=== PATIENT | male | born 1960 | race Caucasian/White ===

== ENCOUNTER → 2018-08-04 | Outpatient (CLI) | payer OTHER ==
[~2018-08-04] MED LIST: ATEN25 PO; ESOM20 PO; GLIM4 PO; METF500 PO; NIAC500 PO; PIOG45 PO; ROSU10TA PO; SITA100T2 PO; TELM80/12.5 PO
== END ==
LOC: LAB SHORT 14:05 → LAB EV 14:05
DX: E11.65 Type 2 diabetes mellitus with hyperglycemia (principal)
CPT/HCPCS: 82043